=== PATIENT | male | born 1945 | race Caucasian/White ===

== ENCOUNTER 2021-12-28 12:59 | Emergency (ER) | payer MEDICARE, OTHER, SELFPAY ==
[2021-12-28] VITALS (16 sets, daily range): BP systolic 93–127; BP diastolic 53–83; PULSE 61–91; RESP 16–28; O2SAT 89–99; BMI 35.9
--- NOTE | 2021-12-28 13:14 | DI.RAD.S_ITS ---
PROCEDURE: XR CHEST 1V INDICATIONS: chest pain TECHNIQUE: One view of the chest was acquired. COMPARISON: Outside Film, CT, CT CHEST WITH CONTRAST, 03/31/2019, 11:44. [facility], CR, XR CHEST 1 VIEW, 03/15/2019, 13:04. FINDINGS: Surgical changes and devices: None. Lungs and pleura: Lung volumes are low. Reticular radiopacities are present at the bilateral lung bases similar to the study dated March 15, 2019. No acute airspace opacities. No pleural effusion or pneumothorax. Mediastinum: Mediastinal contours appear normal. Heart size is normal. Bones and chest wall: No suspicious bony lesions. Overlying soft tissues appear unremarkable. IMPRESSION: Findings suspicious for basilar pulmonary fibrosis. Dictated by: Maylin Medina M.D. on 12/28/2021 at 14:16 Approved by: Maylin Medina M.D. on 12/28/2021 at 14:17
[2021-12-28 14:46] LABS: Add Manual Diff / Slide Review NO; Basophils Absolute Auto 200 /uL (0-100); Basophils Percent Auto 1.4 % (0-2); Eosinophils Absolute Auto 400 /uL (0-450); Eosinophils Percent Auto 3.1 % (2-4); Hemoglobin 13.9 g/dL (13.5-17.5); Lymphocytes Absolute Auto 1300 /uL (1100-4500); Lymphocytes Percent Auto 11.4 % (25-40); Mean Corpuscular HGB Conc 32.3 % (30-36); Mean Corpuscular Hemoglobin 29.7 PG (26-34); Mean Corpuscular Volume 92.1 fL (80-100); Monocytes Absolute Auto 1300 /uL (0-900); Monocytes Percent Auto 11.3 % (3-14); Neutrophils Absolute Auto 8200 /uL (1500-7000); Neutrophils Percent Auto 72.8 % (50-75); Platelet Count 169 X10^3/uL (150-400); Red Blood Cell Count 4.68 X10^6/uL (4.5-5.9); Red Cell Distribution Width 14.9 % (11.6-14.8); White Blood Cell Count 11.3 X10^3/uL (4.5-11.0)
[2021-12-28 14:56] LABS: Alanine Aminotransferase 13 IU/L (<50); Albumin 3.7 g/dL (3.5-5.0); Albumin Globulin Ratio 1.4 (1.0-2.8); Alkaline Phosphatase 74 U/L (38-126); Aspartate Aminotransferase 29 IU/L (17-59); BUN Creatinine Ratio 14.8 (6-22); Bilirubin Total 0.9 mg/dL (0.2-1.3); Blood Urea Nitrogen 13 mg/dL (9-20); Calcium 8.9 mg/dL (8.4-10.2); Carbon Dioxide 30 mmol/L (22-32); Chloride 105 mmol/L (98-107); Creatine Kinase 35 U/L (55-170); Estimated Glomerular Filt Rate > 60 mL/min (>60); Globulin 2.7 g/dL (1.7-4.1); Glucose 107 mg/dL (80-110); HEMOLYSIS 30 (0-50); Lipase 56 U/L (23-300); Potassium 3.6 mmol/L (3.4-5.1); Sodium 140 mmol/L (137-145); Total Protein 6.4 g/dL (6.3-8.2)
[2021-12-28 15:08] LABS: Troponin I < 0.012 ng/mL (0.01-0.034)
--- NOTE | 2021-12-28 16:04 | ED.SYNCOPE ---
HPI - Syncope General Chief Complaint: Syncope Stated Complaint: Syncope, Weakness Time Seen by Provider: 12/28/21 15:58 Source: patient and EMS Mode of arrival: EMS History of Present Illness HPI narrative: Patient is a 76-year-old male history of metastatic prostate cancer, BPH, BR[place]YDA, atrial fibrillation on Coumadin presenting with syncopal episode. He has actually had multiple syncopal episodes in the past and a few over the last month. He actually was hospitalized at [facility] for pneumonia and during that time he had presyncopal episodes thought to be due to orthostatic hypotension secondary to dehydration and diarrhea. Patient states that he has actually had syncopal episodes before that had and today he was swelling up with his primary care provider and had a witnessed syncopal episode in the office. He was sitting in his wheelchair, he said he got very lightheaded felt like he was going to pass out then he did for roughly 30 seconds. He denied any chest pain or palpitations. He said this has happened to him enough times that now he has warning signs. Home his warning sign is usually lightheadedness. Patient had an echocardiogram at [facility] he had a newly reduced EF of 50% with a repeat TTE on December 14 within normal EF. He has not had any fever or chills. No painful or frequent urination. He has no abdominal pain. He has noted increasing shortness of breath with minimal exertion. Related Data Allergies Allergy/AdvReac Type Severity Reaction Status Date / Time Penicillins Allergy Verified 12/28/21 13:13 Sulfa (Sulfonamide Allergy Verified 12/28/21 13:13 Antibiotics) Review of Systems Review of Systems Narrative: GENERAL: Denies chills, fatigue, malaise, fever, sweats, travel HEENT: Denies sinus pain, ear pain, sore throat, difficulty swallowing, neck pain RESPIRATORY: See HPI. CARDIOVASCULAR: See HPI GASTROINTESTINAL: Denies nausea, vomiting, abdominal pain, diarrhea, constipation, melena. : Denies dysuria, frequency, incontinence, hematuria, urinary retention, flank pain. MUSCULOSKELETAL: Denies weakness, joint pain, or bony pain SKIN: No rash, no erythema, no pruritus NEUROLOGIC: Denies weakness, dizziness, headache, numbness, change in speech, confusion PSYCHIATRIC: No concerning psychosocial issues. 12 point review of systems is negative except for those stated above and HPI Patient History Social History Smoking Status: Never smoker Smoking Status: Never smoker Substance Use Type: does not use Exam Initial Vital Signs Initial Vital Signs: Vital Signs Pulse Rate 86 12/28/21 13:43 Respiratory Rate 21 12/28/21 13:43 Blood Pressure 122/79 12/28/21 13:43 Pulse Oximetry 94 12/28/21 13:43 Oxygen Delivery Method 12/28/21 13:43 GENERAL: Alert pleasant 76-year-old and in no acute distress. HEENT: Head atraumatic,EOMI, pupils reactive, face symmetric, moist mucous membranes CARDIOVASCULAR: irregularly irregular no murmur RESPIRATORY: Breath sounds equal bilaterally, no wheezes rales or rhonchi. ABDOMEN: Soft, nontender. Normoactive bowel sounds all 4 quadrants. No guarding or rebound. EXTREMITIES: Normal range of motion, no clubbing or edema. Neurovascularly intact NEUROLOGICAL: Alert and oriented x4.Normal gait and speech. Cranial nerves II through XII grossly intact. Good [id number], good [id number], strength equal bilaterally, no dysarthria or aphasia, sensation in tact to soft touch bilaterally, no visual changes, no facial droop SKIN: Warm, dry, no laceration, no petechiae, no rashes or lesions. Course Orders Ordered: ED Orders 12/28/21 13:14 XR chest 1V Stat EKG-12 Lead Stat 12/28/21 14:25 BNP [NT-proBNP (BNP-Adult 18+)] Stat Complete Blood Count AUTO DIFF Stat Comprehensive Metabolic Panel Stat D Dimer Stat Lipase Stat Magnesium Stat PTT [Partial Thromboplastin Time] Stat Prothrombin Time INR Stat Troponin & CK Cardiac Panel Stat 12/28/21 16:57 CT angio chest PE protocol Stat CT head/brain wo con Stat 12/28/21 17:45 COVID19 -Nasal RAPID/Pre-Proc Stat Vital Signs Vital signs: Vital Signs - 8 hr 12/28/21 13:43 12/28/21 13:56 12/28/21 13:57 Pulse Rate 86 89 Respiratory Rate 21 28 H Blood Pressure 122/79 115/76 Pulse Oximetry 94 94 Oxygen Delivery Method Room Air 12/28/21 13:57 12/28/21 14:00 12/28/21 14:01 Pulse Rate 90 87 86 Respiratory Rate 25 H 19 16 Blood Pressure Pulse Oximetry 93 95 Oxygen Delivery Method 12/28/21 14:01 12/28/21 14:30 12/28/21 14:30 Pulse Rate 82 Respiratory Rate 25 H Blood Pressure 109/68 105/53 L Pulse Oximetry Oxygen Delivery Method 12/28/21 15:07 12/28/21 14:54 12/28/21 16:00 Pulse Rate 85 81 Respiratory Rate 23 17 Blood Pressure 113/70 93/64 121/75 Pulse Oximetry 95 99 Oxygen Delivery Method Room Air Room Air 12/28/21 17:23 Pulse Rate 84 Respiratory Rate 22 Blood Pressure 127/83 Pulse Oximetry 99 Oxygen Delivery Method Room Air MDM - Syncope Lab Data Result diagrams: 12/28/21 14:25 12/28/21 14:25 Labs: Lab Results 12/28/21 12/28/21 12/28/21 Range/Units 14:25 14:25 14:25 WBC 11.3 H (4.5-11.0) X10^3/uL RBC 4.68 (4.5-5.9) X10^6/uL Hgb 13.9 (13.5-17.5) g/dL Hct 43.0 (41-53) % MCV 92.1 (80-100) fL MCH 29.7 (26-34) PG MCHC 32.3 (30-36) % RDW 14.9 H (11.6-14.8) % Plt Count 169 (150-400) X10^3/uL Neut % (Auto) 72.8 (50-75) % Lymph % (Auto) 11.4 L (25-40) % [place] % (Auto) 11.3 (3-14) % Eos % (Auto) 3.1 (2-4) % Baso % (Auto) 1.4 (0-2) % Neut # (Auto) 8200 H (9782-8297) /uL Lymph # (Auto) 1300 (9009-4853) /uL [place] # (Auto) 1300 H (0-900) /uL Eos # (Auto) 400 (0-450) /uL Baso # (Auto) 200 H (0-100) /uL PT (10.1-12.7) SECONDS INR (0.9-1.3) APTT (26.4-36.2) SECONDS D-Dimer 331 H (<230) ng/mL Sodium 140 (137-145) mmol/L Potassium 3.6 (3.4-5.1) mmol/L Chloride 105 (98-107) mmol/L Carbon Dioxide 30 (22-32) mmol/L BUN 13 (9-20) mg/dL Creatinine 0.88 (0.66-1.25) mg/dL Estimated GFR > 60 (>60) mL/min BUN/Creatinine Ratio 14.8 (6-22) Glucose 107 (80-110) mg/dL Calcium 8.9 (8.4-10.2) mg/dL Magnesium 2.0 (1.6-2.3) mg/dL Total Bilirubin 0.9 (0.2-1.3) mg/dL AST 29 (17-59) IU/L ALT 13 (<50) IU/L Alkaline Phosphatase 74 (38-126) U/L Total Creatine Kinase 35 L (55-170) U/L CK-MB (CK-2) TNP CK-MB (CK-2) Rel Index TNP Troponin I < 0.012 (0.01-0.034) ng/mL NT-Pro-B Natriuret Pep (<450) pg/mL Total Protein 6.4 (6.3-8.2) g/dL Albumin 3.7 (3.5-5.0) g/dL Globulin 2.7 (1.7-4.1) g/dL Albumin/Globulin Ratio 1.4 (1.0-2.8) Lipase 56 (23-300) U/L SARS-CoV-2 (PCR) (Negative) 12/28/21 12/28/21 12/28/21 Range/Units 14:25 14:25 17:45 WBC (4.5-11.0) X10^3/uL RBC (4.5-5.9) X10^6/uL Hgb (13.5-17.5) g/dL Hct (41-53) % MCV (80-100) fL MCH (26-34) PG MCHC (30-36) % RDW (11.6-14.8) % Plt Count (150-400) X10^3/uL Neut % (Auto) (50-75) % Lymph % (Auto) (25-40) % [place] % (Auto) (3-14) % Eos % (Auto) (2-4) % Baso % (Auto) (0-2) % Neut # (Auto) (6018-4075) /uL Lymph # (Auto) (8493-1272) /uL [place] # (Auto) (0-900) /uL Eos # (Auto) (0-450) /uL Baso # (Auto) (0-100) /uL PT 21.8 H (10.1-12.7) SECONDS INR 1.9 H (0.9-1.3) APTT 37 H (26.4-36.2) SECONDS D-Dimer (<230) ng/mL Sodium (137-145) mmol/L Potassium (3.4-5.1) mmol/L Chloride (98-107) mmol/L Carbon Dioxide (22-32) mmol/L BUN (9-20) mg/dL Creatinine (0.66-1.25) mg/dL Estimated GFR (>60) mL/min BUN/Creatinine Ratio (6-22) Glucose (80-110) mg/dL Calcium (8.4-10.2) mg/dL Magnesium (1.6-2.3) mg/dL Total Bilirubin (0.2-1.3) mg/dL AST (17-59) IU/L ALT (<50) IU/L Alkaline Phosphatase (38-126) U/L Total Creatine Kinase (55-170) U/L CK-MB (CK-2) CK-MB (CK-2) Rel Index Troponin I (0.01-0.034) ng/mL NT-Pro-B Natriuret Pep 1170 H (<450) pg/mL Total Protein (6.3-8.2) g/dL Albumin (3.5-5.0) g/dL Globulin (1.7-4.1) g/dL Albumin/Globulin Ratio (1.0-2.8) Lipase (23-300) U/L SARS-CoV-2 (PCR) Negative (Negative) Imaging Data Chest x-ray: Radiologist's Impression: Signed Patient: Govind Velazquez MR#: [id number] : 1945 Acct:[id number] Age/Sex: 76 / M Date of Service: 12/28/21 Loc: ED Accession Number: [id number] ?? Procedure: XR chest 1V Ordering Provider: Moni Vigil D.O. PROCEDURE:? XR CHEST 1V ? INDICATIONS:? chest pain ? TECHNIQUE:? One view of the chest was acquired.? ? COMPARISON:? Outside Film, CT, CT CHEST WITH CONTRAST, 03/31/2019, 11:44.? [facility], CR, XR CHEST 1 VIEW, 03/15/2019, 13:04. ? FINDINGS:? ? Surgical changes and devices:? None.? ? Lungs and pleura:? Lung volumes are low.? Reticular radiopacities are present at the bilateral lung bases similar to the study dated March 15, 2019. No acute airspace opacities.? No pleural effusion or pneumothorax.? ? Mediastinum:? Mediastinal contours appear normal.? Heart size is normal.? ? Bones and chest wall:? No suspicious bony lesions.? Overlying soft tissues appear unremarkable.? ? IMPRESSION:? Findings suspicious for basilar pulmonary fibrosis. ? ? Dictated by: Maylin Medina M.D. on 12/28/2021 at 14:16 ? ? Approved by: Maylin Medina M.D. on 12/28/2021 at 14:17 ? CT scan - chest: Radiologist's Impression: CT Scan Report Signed Patient: Govind Velazquez MR#: [id number] : 1945 Acct:[id number] Age/Sex: 76 / M Date of Service: 12/28/21 Loc: ED Accession Number: [id number] ?? Procedure: CT angio chest PE protocol Ordering Provider: Moni Vigil D.O. PROCEDURE:? CT ANGIO CHEST PE PROTOCOL ? INDICATIONS:? hypoxia cancer recent hospitalization ? TECHNIQUE:? After the administration of intravenous contrast, 2 mm thick sections acquired from the pulmonary apices to the posterior costophrenic angles.? 3-dimensional maximum intensity projection (MIP) coronal and sagittal reformats were then acquired through the thorax.? For radiation dose reduction, the following was used:? automated exposure control, adjustment of mA and/or kV according to patient size.? ? COMPARISON:? Outside Film, CT, CT CHEST WITH CONTRAST, 03/31/2019, 11:44.? [facility], CR, XR CHEST 1 VIEW, 03/15/2019, 13:04. ? FINDINGS:? Image quality:? Excellent.? ? Pulmonary arteries:? Pulmonary arteries are normal in size, and demonstrate no intraluminal filling defects to suggest central pulmonary embolism.? ? Lungs and pleura:? Bilateral diffuse subpleural septal thickening and pulmonary fibrosis. ?There is a 7 mm nodule in the right middle lobe (series 5, image 135), unchanged in size since 03/31/2019, likely benign.? No pleural effusions or pneumothorax.? Central and peripheral airways are patent.? ? Mediastinum:? Heart size is moderately increased, without pericardial effusion.? Mild coronary artery calcification.? ? Mild mediastinal and lymphadenopathy.? For example, there is a 1.0 x 1.8 cm right paratracheal lymph node.? A 1.0 x 1.5 cm AP window lymph node is identified.? There is a 1.6 cm subcarinal lymph node.? Mildly enlarged right hilar lymph node measures 1.5 cm. ? Thoracic aorta is normal in caliber and enhancement.? Esophagus is normal in caliber, without hiatal hernia.? ? Bones and chest wall:? No suspicious bony lesions.? Ribs and thoracic spine appear intact throughout.? Thyroid gland is normal.? No axillary or supraclavicular adenopathy.? ? Abdomen:? Visualized upper abdominal solid organs appear normal in the early arterial phase of enhancement.? ? IMPRESSION:? ? 1. No evidence for pulmonary embolism. ? 2. 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 Recommend clinical correlation.? Compared to the last exam on 03/31/2019, interstitial lung disease has significantly worsened. ? 3. Stable 7 mm nodule in the right middle lobe. ? 4. Mild mediastinal and hilar lymphadenopathy.? ? This finding is nonspecific and most likely reactive.? Differential diagnoses include infectious, inflammatory or neoplastic etiology.? Recommend clinical correlation and follow up. ? 5. Moderate cardiomegaly. ? 6. Mild coronary artery calcification.? Dictated by: Reynaldo Khan M.D. on 12/28/2021 at 18:33 ? ? CT scan - head: Radiologist's Impression: CT Scan Report Signed Patient: Govind Velazquez MR#: [id number] : 1945 Acct:[id number] Age/Sex: 76 / M Date of Service: 12/28/21 Loc: ED Accession Number: [id number] ?? Procedure: CT head/brain wo con Ordering Provider: Moni Vigil D.O. PROCEDURE:? CT HEAD/BRAIN WO CON ? INDICATIONS:? Syncope on Coumadin ? TECHNIQUE:? Noncontrast 4.5 mm thick angled axial sections acquired from the foramen magnum to the vertex, with coronal and sagittal reformats.? For radiation dose reduction, the following was used:? automated exposure control, adjustment of mA and/or kV according to patient size.? ? COMPARISON:? None. ? FINDINGS:? Image quality:? Excellent.? ? CSF spaces:? Basal cisterns are patent.? No extra-axial fluid collections.? Ventricles are normal in size and shape.? ? Brain:? No midline shift.? No intracranial masses or hemorrhage.? Whitney-white matter interface is normal.? Moderate cerebral and cerebellar volume loss with multifocal white matter chronic ischemic change noted. ? Skull and face:? Calvarium and visualized facial bones are intact, without suspicious lesions.? Bilateral intraocular lens replacements noted. ? Sinuses:? Visualized sinuses and mastoids are clear.? ? IMPRESSION:? ? 1. Atrophy and chronic ischemic change without intracranial hemorrhage or mass effect ? ? ECG Data Interpretation: Atrial fibrillation rate [address] changes no priors to compare MDM Narrative Medical decision making narrative: Patient has had a number episodes. Was previously thought to be vasovagal secondary to hypotension and diarrhea. However today there is no evidence of hypotension. He has also been complaining of increasing shortness of breath with exertion. While he tries to skip on the bed it is noted that his heart rate increases in his O2 does drop into the 80s. With rest it proves. BNP is noted to be mildly elevated 1100 he recently had echocardiograms which show normal EF. No evidence of pulmonary embolism negative head CT. Patient is neurologically intact. He remains rate controlled here in the ED. Patient has had multiple echocardiogram within the last month he has been is in the hospital on monitors for while if there was significant cardiac arrhythmia probably would be caught. The patient is supposed to have stopped his metoprolol which may be causing some hypotension. Patient ambulated in the ED heart rate and O2 remained controlled. Patient overall feels okay. Patient may need outpatient carotid Doppler studies FX I do not see that those were done. He may also need outpatient Holter monitor. TTE Conclusion The left ventricle is normal in size. There is moderate concentric increase in the wall thickness of the left ventricle. The calculated ejection fraction, as determined by the biplane method of disks, is 68%. No regional wall motion abnormalities are present. ? The right ventricle is normal size. The right ventricular systolic function is normal. ? The aortic valve is mildly calcified. There is discrete nodular thickening of the non- coronary cusp. No hemodynamically significant valvular aortic stenosis. ? There is trace mitral regurgitation. ? The left atrium is borderline dilated. ? The inferior vena cava is normal in diameter (<2.1cm) and collapses >50% with sniff (estimated right atrial pressure 0-5mmHg) ? Pulmonary artery systolic pressure could not be estimated due to an insufficient tricuspid regurgitant jet. ? A trace pericardial effusion is present. The pericardial effusion is anterior. ? Compared to TTE 11/15/2021 , no change. Discharge Plan Departure Patient Disposition: Home Clinical Impression: Syncope due to orthostatic hypotension Instructions: DI for Syncope in Adults (Fainting) Activity Restrictions/Additional Instructions: *You have been diagnosed with syncope *What to do: At this time here cause of syncope is not well known. You may need outpatient carotid Dopplers done with her primary care provider. May also consider Holter monitor. Discharge paperwork from [facility] say hold metoprolol until evaluation by your associate professor of forestry. This may be making your blood pressure low. Please go home and continue to monitor. *Continue to take medications as directed *Follow up with your primary care provider in 2-3 days or call [phone] *Return to ER if you should have recurrent episode of passing out, heart rate greater than 120 increasing shortness of breath or any new, worsening or concerning symptoms Referrals: Jonnie Tai MD [Primary Care Provider] - Visit Report Forms: Patient Portal/API ED Sign-out Cosign ED Attending Cosignature Attestation: I was immediately available in the department for consultation. Documentation has been reviewed. I agree with assessment and plan.
--- NOTE | 2021-12-28 16:57 | DI.CT.S_ITS ---
PROCEDURE: CT HEAD/BRAIN WO CON INDICATIONS: Syncope on Coumadin TECHNIQUE: Noncontrast 4.5 mm thick angled axial sections acquired from the foramen magnum to the vertex, with coronal and sagittal reformats. For radiation dose reduction, the following was used: automated exposure control, adjustment of mA and/or kV according to patient size. COMPARISON: None. FINDINGS: Image quality: Excellent. CSF spaces: Basal cisterns are patent. No extra-axial fluid collections. Ventricles are normal in size and shape. Brain: No midline shift. No intracranial masses or hemorrhage. Whitney-white matter interface is normal. Moderate cerebral and cerebellar volume loss with multifocal white matter chronic ischemic change noted. Skull and face: Calvarium and visualized facial bones are intact, without suspicious lesions. Bilateral intraocular lens replacements noted. Sinuses: Visualized sinuses and mastoids are clear. IMPRESSION: 1. Atrophy and chronic ischemic change without intracranial hemorrhage or mass effect Approved by: Nabil Fulton M.D. on 12/28/2021 at 17:28
--- NOTE | 2021-12-28 16:57 | DI.CT.S_ITS ---
PROCEDURE: CT ANGIO CHEST PE PROTOCOL INDICATIONS: hypoxia cancer recent hospitalization TECHNIQUE: After the administration of intravenous contrast, 2 mm thick sections acquired from the pulmonary apices to the posterior costophrenic angles. 3-dimensional maximum intensity projection (MIP) coronal and sagittal reformats were then acquired through the thorax. For radiation dose reduction, the following was used: automated exposure control, adjustment of mA and/or kV according to patient size. COMPARISON: Outside Film, CT, CT CHEST WITH CONTRAST, 03/31/2019, 11:44. [facility], CR, XR CHEST 1 VIEW, 03/15/2019, 13:04. FINDINGS: Image quality: Excellent. Pulmonary arteries: Pulmonary arteries are normal in size, and demonstrate no intraluminal filling defects to suggest central pulmonary embolism. Lungs and pleura: Bilateral diffuse subpleural septal thickening and pulmonary fibrosis. There is a 7 mm nodule in the right middle lobe (series 5, image 135), unchanged in size since 03/31/2019, likely benign. No pleural effusions or pneumothorax. Central and peripheral airways are patent. Mediastinum: Heart size is moderately increased, without pericardial effusion. Mild coronary artery calcification. Mild mediastinal and lymphadenopathy. For example, there is a 1.0 x 1.8 cm right paratracheal lymph node. A 1.0 x 1.5 cm AP window lymph node is identified. There is a 1.6 cm subcarinal lymph node. Mildly enlarged right hilar lymph node measures 1.5 cm. Thoracic aorta is normal in caliber and enhancement. Esophagus is normal in caliber, without hiatal hernia. Bones and chest wall: No suspicious bony lesions. Ribs and thoracic spine appear intact throughout. Thyroid gland is normal. No axillary or supraclavicular adenopathy. Abdomen: Visualized upper abdominal solid organs appear normal in the early arterial phase of enhancement. IMPRESSION: 1. No evidence for pulmonary embolism. 2. 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 Recommend clinical correlation. Compared to the last exam on 03/31/2019, interstitial lung disease has significantly worsened. 3. Stable 7 mm nodule in the right middle lobe. 4. Mild mediastinal and hilar lymphadenopathy. This finding is nonspecific and most likely reactive. Differential diagnoses include infectious, inflammatory or neoplastic etiology. Recommend clinical correlation and follow up. 5. Moderate cardiomegaly. 6. Mild coronary artery calcification. Dictated by: Reynaldo Khan M.D. on 12/28/2021 at 18:33 Approved by: Reynaldo Khan M.D. on 12/28/2021 at 18:41
[2021-12-28 17:05] LABS: INR 1.9 (0.9-1.3); Prothrombin Time 21.8 SECONDS (10.1-12.7)
[2021-12-28 17:07] LABS: PTT Partial Thromboplastin Tim 37 SECONDS (26.4-36.2)
[2021-12-28 17:18] LABS: D Dimer 331 ng/mL (<230)
[2021-12-28 17:20] LABS: NT-proBNP (BNP-Adult 18+) 1170 pg/mL (<450)
[2021-12-28 18:26] LABS: COVID19 -Nasal RAPID Negative (Negative)
--- NOTE | 2021-12-28 20:06 | PC.NURSE ---
Pt ambulated in hallway with walker and this RN standby. Pt oxygen never went below 90% onRA, and quickly came up to 94% on RA after a minute of rest. Heart rate remained between 85-96. Pt denied feeling lightheaded/dizzy. Provider notified.
== END 2021-12-28 20:39 | disposition home or self-care (01) ==
PROVIDERS: Emergency Medicine; Emergency Provider Emergency Medicine; PCP Internal Medicine
DX: I95.1 Orthostatic hypotension (principal); R07.9 Chest pain, unspecified; Z20.822 Contact with and (suspected) exposure to COVID-19; Z79.01 Long term (current) use of anticoagulants
CPT/HCPCS: 36415; 70450; 71045; 71275; 80053; 82550; 83690; 83735; 83880; 84484; 85025; 85379; 85610; 85730; 87635; 93005; 93010; 99284; C9803; Q9967